=== PATIENT | female | born 1985 | race Caucasian/White ===

== ENCOUNTER 2019-03-19 08:17 | Day surgery (SDC) | payer OTHER ==
[2019-03-19] MEDS ORDERED: CEFAZOLIN 2 GM/50 ML (PMX) 50 ML IVPB (09:30)
== END 2019-03-19 10:12 | disposition home or self-care (01) ==
LOC: SDS 08:17
DX: D16.32 Benign neoplasm of short bones of left lower limb (principal); Z53.09 Procedure and treatment not carried out because of other contraindication; Z79.01 Long term (current) use of anticoagulants; Q90.9 Down syndrome, unspecified
CPT/HCPCS: J0690